=== PATIENT | female | born 1990 | race Two or more races ===

== ENCOUNTER → 2018-12-16 | Outpatient (CLI) | payer BC ==
[2018-12-16 10:03] LABS: Urine Bacteria NONE SEEN /hpf (None Seen); Urine Blood Negative /uL (Negative); Urine Mucus FEW (None Seen); Urine Specific Gravity 1.021 (1.001-1.035); Urine WBC <1 /hpf (0 - 5)
[2018-12-16 10:06] LABS: Basophils # (auto) 0.1 uL; Eosinophils # (auto) 0.5 uL; Hemoglobin 11.9 g/dL (12.2-16.2); Mean Corpuscular Hgb Conc. 30.8 g/dL (32.0-36.0); Neutrophils # (auto) 6.2 uL; Nucleated Red Blood Cells % 0.1 %
[2018-12-16 10:08] LABS: Basophils % (auto) 0.9 % (0.0-2.0); Eosinophils % (auto) 4.2 % (0.0-7.0); Hematocrit 38.7 % (36.0-46.0); Lymphocytes # (auto) 3.4 uL; Lymphocytes % (auto) 31.3 % (10.0-50.0); Mean Corpuscular Volume 74.7 fL (80.0-100.0); Monocytes # (auto) 0.6 uL; Monocytes % (auto) 5.2 % (0.0-12.0); Neutrophils % (auto) 58.4 % (37.0-80.0); Platelet Count (auto) 340 10^3/uL (140-450); Red Blood Cells 5.18 10^6/uL (4.0-5.20); Red Cell Distribution Width 17.5 % (11.8-14.3); White Blood Cell 10.7 10^3/uL (4.4-10.8)
[2018-12-16 10:19] LABS: Albumin 3.4 g/dL (3.4-5.0); BUN/Creatinine Ratio 12.2
[2018-12-16 10:42] LABS: Bilirubin, Total 0.4 mg/dL (0.2-1.0); Potassium 4.2 mmol/L (3.5-5.1); Total Protein 8.5 g/dL (6.4-8.2)
[2018-12-16 11:16] LABS: Leuteinizing Hormone 6.8 IU/L
[2018-12-16 11:17] LABS: Follicle Stimulating Hormone 5.28 IU/L (SEE BELOW)
== END | disposition home or self-care (01) ==
LOC: LAB 09:13
PROVIDERS: ATTEND Internal Medicine
DX: N92.0 Excessive and frequent menstruation with regular cycle (principal); N92.6 Irregular menstruation, unspecified
CPT/HCPCS: 36415; 80053; 80061; 81001; 82672; 83001; 83002; 83036; 84144; 84403; 84443; 85025

== ENCOUNTER 2019-07-16 12:08 | Emergency (ER) | payer BC ==
[~2019-07-16] VITALS: Ht 170.2 cm; Wt 95.3 kg
[2019-07-16 12:14] VITALS: BP 144/93
== END 2019-07-16 12:31 | disposition home or self-care (01) ==
LOC: ER 12:08
DX: G51.0 Bell's palsy (principal); E78.5 Hyperlipidemia, unspecified
CPT/HCPCS: 70551

== ENCOUNTER → 2023-01-02 | Outpatient (CLI) | payer BC ==
[2023-01-02 14:53] LABS: Basophils # (auto) 0.1 10 ^3/uL (0-0.2); Basophils % (auto) 0.5 % (0.0-2.0); Eosinophils # (auto) 0.3 10 ^3/uL (0-0.8); Eosinophils % (auto) 2.5 % (0.0-7.0); Hematocrit 43.8 % (36.0-46.0); Hemoglobin 14.5 g/dL (12.2-16.2); Lymphocytes # (auto) 2.7 10 ^3/uL (0.4-5.4); Mean Corpuscular Hemoglobin 27.9 pg (28.0-32.0); Mean Corpuscular Volume 84.4 fL (80.0-100.0); Monocytes # (auto) 1.1 10 ^3/uL (0-1.3); Monocytes % (auto) 9.7 % (0.0-12.0); Neutrophils # (auto) 6.8 10 ^3/uL (1.6-8.6); Neutrophils % (auto) 62.3 % (37.0-80.0); Nucleated Red Blood Cells % 0.1 %; Red Blood Cells 5.19 10^6/uL (4.0-5.20); Red Cell Distribution Width 15.8 % (11.8-14.3); White Blood Cell 10.9 10^3/uL (4.4-10.8)
[2023-01-02 15:33] LABS: Alanine Aminotransferase 60 U/L (7-40); Albumin 4.3 g/dL (3.2-4.8); Alkaline Phosphatase 82 U/L (46-116); Anion Gap 3 (5-15); Aspartate Aminotransferase 41 U/L (13-40); BUN/Creatinine Ratio 8.8 (10.0-20.0); Blood Urea Nitrogen 7 mg/dL (9-23); Calcium 9.3 mg/dL (8.7-10.4); Carbon Dioxide 31 mmol/L (20-30); Chloride 102 mmol/L (98-107); Glucose 90 mg/dL (74-106); Potassium 3.9 mmol/L (3.5-5.1); Sodium 136 mmol/L (136-145)
[2023-01-02 15:34] LABS: Bilirubin, Total 0.2 mg/dL (0.2-1.0); Total Protein 8.1 g/dL (5.7-8.2)
== END | disposition home or self-care (01) ==
LOC: LAB 14:34
PROVIDERS: ATTEND Internal Medicine
DX: R22.1 Localized swelling, mass and lump, neck (principal)
CPT/HCPCS: 36415; 80053; 85025